=== PATIENT | male | born 1965 | race African-American/Black ===

== ENCOUNTER 2020-09-16 10:45 | Emergency (ER) | payer OTHER, SELFPAY ==
[2020-09-16 11:06] VITALS: BP 148/98; PULSE 90; RESP 20; TEMP 37.2; O2SAT 99
--- NOTE | 2020-09-16 11:08 | ED.UPPEXIN ---
HPI - Extremity Injury (Upper) General Chief Complaint: Extremity Injury, Upper Stated Complaint: left arm injury Time Seen by Provider: 09/16/20 11:14 Source: patient and RN notes reviewed Mode of arrival: ambulatory Limitations: no limitations History of Present Illness HPI narrative: 54-year-old male presents concern for left elbow pain and injury. Reports approximate 1 week ago at work he was loosening a tight bolt when he felt a pop in his elbow. Reports since then he has been having elbow pain that radiates to the back of the left arm. Reports he has been taking Motrin once daily with little relief. 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 Denies any other decreased range of motion, sensation in the left upper extremity. MD complaint: injury to: left and elbow Related Data Home Medications Medication Instructions Recorded Confirmed hydrochlorothiazide 25 mg PO DAILY 09/16/20 09/16/20 Allergies Allergy/AdvReac Type Severity Reaction Status Date / Time No Known Allergies Allergy Verified 09/16/20 11:10 Review of Systems Review of Systems: Narrative: CONSTITUTIONAL: Denies malaise, chills, sweats, or fever. CARDIOVASCULAR: Denies chest pain, palpitations, or edema. RESPIRATORY: Denies cough or dyspnea. SKIN: Denies abrasions, lacerations MUSCULOSKELETAL: Reports left elbow pain NEUROLOGIC: Denies numbness, weakness All systems reviewed & are unremarkable except as noted in HPI and below PMFSH Comments At time of signature, agree with nursing past medical, surgical, social and family history. There is no relevant family history pertinent to the presenting complaint Exam Narrative: Exam Narrative: GENERAL: Well-appearing, well-nourished, and in no acute distress. HEAD: Normocephalic, atraumatic. EYES: PERRLA, conjunctivae clear NECK: Supple. CHEST: Speaks in full sentences. No respiratory distress. HEART: Regular rate and rhythm. Normal and equal peripheral pulses. EXTREMITIES: Left elbow, arm, hand have normal sensation, normal range of motion. 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 No edema or ecchymosis. 5/5 strength with elbow flexion and extension. Normal sensation with sensitivity to light touch and pain. Medial elbow tenderness. No open wounds, no skin tenting, no devitalized tissue or atrophy, no trophic changes, no obvious deformity, alignment normal, nearby joints and structures intact. Distal pulses palpable and equal bilaterally, skin warm, dry, pink. Capillary refill less than 3 seconds. SKIN: Warm, dry, no rash. NEURO: Alert and oriented x3. PSYCH: Normal mood and affect Course Course Emergency Course: Patient is aware of diagnosis, understands and agrees to treatment plan. Anticipatory guidance given. Patient agrees to follow-up as directed and is aware of reasons to seek care at the emergency department. Portions of this record may have been created with voice recognition software Vital Signs Vital signs: Vital Signs Temperature 99.0 F 09/16/20 11:06 Pulse Rate 90 09/16/20 11:06 Respiratory Rate 20 09/16/20 11:06 Blood Pressure 148/98 H 09/16/20 11:06 Pulse Oximetry 99 09/16/20 11:06 Temperature 99.0 F 09/16/20 11:06 Pulse Rate 90 09/16/20 11:06 Respiratory Rate 20 09/16/20 11:06 Blood Pressure 148/98 H 09/16/20 11:06 Pulse Oximetry 99 09/16/20 11:06 Reviewed. MDM - Extremity Injury (Upper) MDM Narrative Medical decision making narrative: Patients injury and pain is consistent with musculoskeletal etiology. No signs of neurological or vascular compromise on exam. Compartments and tissues are soft without signs of compartment syndrome. Pain is felt appropriate for further evaluation on an outpatient basis. Critical Care Time Critical Care Time Critical Care Time: No Discharge Plan Discharge Clinical Impression: Soft tissue injury of left elbow Qualifiers: Encounter type: initial encounter Qualified Code(s): S59.902A - Unspecified injury of
== END 2020-09-16 11:28 | disposition home or self-care (01) ==
PROVIDERS: Emergency Provider Nurse Practitioner; PCP Physician Assistant
DX: S59.902A Unspecified injury of left elbow, initial encounter (principal); X50.0XXA Overexertion from strenuous movement or load, initial encounter; I10 Essential (primary) hypertension
CPT/HCPCS: 99212; A4565; G0463